=== PATIENT | female | born 2005 | race Caucasian/White ===

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

== ENCOUNTER 2023-02-24 19:34 | Emergency (ER) | payer OTHER ==
[~2023-02-24] VITALS: Ht 165.1 cm; Wt 115.0 kg
[2023-02-24 19:48] VITALS: BP 127/88
[2023-02-24 20:27] LABS: URINE BILIRUBIN - DIPSTICK NEGATIVE (NEGATIVE); URINE BLOOD DIPSTICK NEGATIVE (NEGATIVE); URINE COLOR YELLOW; URINE GLUCOSE - DIPSTICK NEGATIVE (NEGATIVE); URINE KETONE NEGATIVE (NEGATIVE); URINE LEUK ESTERASE TRACE (NEGATIVE); URINE NITRITE - DIPSTICK POSITIVE (Negative); URINE PH 6.5 (4.5-8.0); URINE PROTEIN - DIPSTICK NEGATIVE (NEG-TRACE); URINE UROBILINOGEN - DIPSTICK 0.2 E.U./dL (0.2)
[2023-02-24 20:29] LABS: BASO% 0.3 % (0-3); EOS% 0.9 % (0-8); HEMATOCRIT 41.8 % (37.0-47.0); HEMOGLOBIN 13.6 g/dl (12.0-16.0); IMMATURE GRANULOCYTES 0.6 % (0.0-5.0); LYMPH% 15.1 % (15-41); MEAN CELL VOLUME 90.5 fL CALC (80.0-100.0); MEAN CORPUSCULAR HGB 29.4 pG CALC (26.0-32.0); MEAN CORPUSCULAR HGB CONC 32.5 g/dL CAL (32.0-36.0); MONO% 7.4 % (2-13); NEUT# 10.98 thou/uL (2.00-7.15); NEUT% 75.7 % (42-76); RED BLOOD COUNT 4.62 mill/uL (4.20-5.60); RED CELL DISTRI WIDTH 12.1 % (11.5-15.5)
[2023-02-24 20:41] LABS: URINE RBC 0-2 RBC/hpf (0-5); URINE SQUAMOUS EPITHELIAL CELL MODERATE EPI/hpf (0-FEW)
[2023-02-24 20:41] LABS: ALKALINE PHOSPHATASE 71 u/l (38-126); ANION GAP 13 (6-22 (CALC)); BILIRUBIN, TOTAL 0.2 mg/dL (0.02-1.3); BUN 10 mg/dL (8-21); BUN/CREATININE RATIO 17 (12-20 (CALC)); CARBON DIOXIDE 24 mmol/l (22-30); CHLORIDE 107 mmol/l (95-108); CREATININE 0.6 mg/dL (0.5-1.0); GFR FOR AFR.AMER. > 60 ML/MIN (>=60 (CALC)); GFR OTHER RACES > 60 ML/MIN (>=60 (CALC)); LIPASE 35 u/l (23-300); SGOT/AST 18 u/l (14-36); SODIUM 140 mmol/l (137-146); TOTAL PROTEIN 7.3 g/dL (6.3-8.2)
[2023-02-24 20:42] LABS: URINE BACTERIA MANY hpf
[2023-02-24] MEDS ORDERED: CEPHALEXIN500 MG PO (21:58)
[2023-02-24 22:20] VITALS: BP 127/88
== END 2023-02-24 22:31 | disposition home or self-care (01) ==
LOC: ED 19:34
PROVIDERS: Nurse Practitioner
DX: N39.0 Urinary tract infection, site not specified (principal); B96.20 Unspecified Escherichia coli [E. coli] as the cause of diseases classified elsewhere

== ENCOUNTER 2024-04-23 23:54 | Emergency (ER) | payer OTHER ==
[~2024-04-23] VITALS: Ht 165.1 cm; Wt 124.0 kg
[~2024-04-23 23:54] MED LIST changes: +CEPHALEXIN500 MG PO
[2024-04-24] VITALS (7 sets, daily range): BP systolic 114–127; BP diastolic 64–80
[2024-04-24] MEDS ORDERED: IBUPROFEN 600 MG/TAB PO ONE (00:35)
== END 2024-04-24 02:00 | disposition home or self-care (01) ==
LOC: ED 23:54
DX: S92.535A Nondisplaced fracture of distal phalanx of left lesser toe(s), initial encounter for closed fracture (principal); W23.2XXA Caught, crushed, jammed or pinched between a moving and stationary object, initial encounter

== ENCOUNTER 2024-08-08 11:54 | Emergency (ER) | payer OTHER ==
[~2024-08-08] VITALS: Ht 165.1 cm; Wt 122.0 kg
[2024-08-08 12:25] VITALS: BP 105/54
[2024-08-08 12:31] VITALS: BP 120/68
[2024-08-08 12:46] VITALS: BP 112/71
[2024-08-08 12:50] LABS: URINE BILIRUBIN - DIPSTICK Negative (NEGATIVE); URINE BLOOD DIPSTICK Large (NEGATIVE); URINE GLUCOSE - DIPSTICK Negative (NEGATIVE); URINE KETONE Negative (NEGATIVE); URINE NITRITE - DIPSTICK Negative (Negative); URINE PROTEIN - DIPSTICK 100 mg/dL (NEG-TRACE); URINE SPECIFIC GRAVITY 1.025; URINE UROBILINOGEN - DIPSTICK 0.2 E.U./dL (0.2)
[2024-08-08 12:51] LABS: URINE COLOR Yellow; URINE LEUK ESTERASE Small (NEGATIVE); URINE RBC 25-50 RBC/hpf (0-5); URINE WBC 20-50 WBC/hpf (0-5)
[2024-08-08 12:52] LABS: URINE BACTERIA MANY hpf; URINE EPITHELIAL CELLS FEW EPI/hpf (0-FEW)
[2024-08-08] MEDS ORDERED: PHENAZOPYRIDIN100 M1 PO (13:06)
[2024-08-08] MEDS ORDERED: BACTRIM DS1 TAB PO (13:06)
[2024-08-08 13:13] VITALS: BP 118/74
[2024-08-08 13:14] VITALS: BP 118/74
== END 2024-08-08 13:15 | disposition home or self-care (01) ==
LOC: ED 11:54
PROVIDERS: Nurse Practitioner Family
DX: N39.0 Urinary tract infection, site not specified (principal); B96.89 Other specified bacterial agents as the cause of diseases classified elsewhere; Z87.440 Personal history of urinary (tract) infections